=== PATIENT | male | born 1980 | race African-American/Black ===

== ENCOUNTER 2016-11-01 21:25 | Emergency (ER) | payer OTHER ==
[2016-11-01 21:56] VITALS: BP 154/94; PULSE 74; TEMP 98.5; BMI 33.2
== END 2016-11-01 23:08 | disposition left against medical advice (07) ==
LOC: JER 21:25 → JERFT 21:25 → JER 23:08
DX: Z53.21 Procedure and treatment not carried out due to patient leaving prior to being seen by health care provider (principal)
CPT/HCPCS: 99281-25

== ENCOUNTER 2021-09-25 18:59 | Emergency (ER) | payer OTHER ==
[2021-09-25 19:03] VITALS: BP 158/95; PULSE 96; RESP 18; TEMP 97.8; BMI 35.2
[2021-09-25] MEDS ORDERED: KETOROLAC TROMETHAMINE 30 MG/1 ML VIAL IM ONE (19:44)
[2021-09-25] MEDS ORDERED: KETOROLAC TROMETHAMINE 30 MG/1 ML VIAL ONE (19:56)
== END 2021-09-25 20:45 | disposition home or self-care (01) ==
LOC: JERFT 18:59
PROC: 3E0233Z Introduction of Anti-inflammatory into Muscle, Percutaneous Approach (ICD-10-PCS; principal; 2021-09-25)
DX: M25.561 Pain in right knee (principal); M25.562 Pain in left knee; V89.2XXA Person injured in unspecified motor-vehicle accident, traffic, initial encounter; Y92.9 Unspecified place or not applicable
CPT/HCPCS: 73562-TC-LT-FY; 73562-TC-RT-FY; 99284-25

== ENCOUNTER 2021-11-25 18:42 | Emergency (ER) | payer OTHER ==
[2021-11-25 19:01] VITALS: BP 161/90; PULSE 94; RESP 20; TEMP 98.4; BMI 33.9
[2021-11-25] MEDS ORDERED: BACITRACIN 15 GM TUBE TOPICAL OINTMENT ONE (19:54)
== END 2021-11-25 20:35 | disposition home or self-care (01) ==
LOC: JER 18:42 → JERFT 18:42
DX: T16.2XXA Foreign body in left ear, initial encounter (principal)
CPT/HCPCS: 99282-25

== ENCOUNTER 2021-11-29 20:16 | Emergency (ER) | payer OTHER ==
[2021-11-29 20:24] VITALS: BP 136/85; PULSE 100; RESP 18; TEMP 98.4; BMI 33.9
== END 2021-11-29 21:08 | disposition home or self-care (01) ==
LOC: JERFT 20:16
DX: S00.451A Superficial foreign body of right ear, initial encounter (principal)
CPT/HCPCS: 99283-25

== ENCOUNTER 2023-06-07 11:32 | Emergency (ER) | payer OTHER ==
[2023-06-07 11:42] VITALS: TEMP 98.6; BMI 35.2
[2023-06-07 12:18] LABS: BASO % 0.5 % (0-2.0); EOS % 1.6 % (0-4.5); HEMATOCRIT 46.2 % (35.4-49); HEMOGLOBIN 16.1 GM/dL (11.7-16.9); LYMPH % 24.4 % (8-40); MCH 29.5 pg (25.7-33.7); MCHC 34.8 g/dl (32.0-35.9); MEAN CELL VOLUME 84.9 fl (80-96); MEAN PLT VOLUME 8.9 fl (7.5-11.1); MONO % 6.6 % (3.8-10.2); NEUT % 66.9 % (42.8-82.8); PLATELET COUNT 238 10^3/uL (134-434); RBC 5.44 M/mm3 (4.00-5.60); WHITE BLOOD COUNT 11.1 K/mm3 (4.0-10.0)
[2023-06-07] MEDS ORDERED: FAMOTIDINE 20 MG TABLET ONE (12:20)
[2023-06-07] MEDS ORDERED: SUCRALFATE 1 GM TABLET (FP) ONE (12:21)
[2023-06-07] MEDS ORDERED: ACETAMINOPHEN INJECTION 100 ML IVPB ONE (12:21)
[2023-06-07] MEDS ORDERED: MAG HYDROX/AL HYDROX/SIMETH 30 ML UNIT-DOSE CUP ONE (12:21)
[2023-06-07] MEDS: ACETAMINOPHEN 1000 MG/100 ML BAG IVPB ONE (12:27)
[2023-06-07] MEDS: MAG HYDROX/AL HYDROX/SIMETH -MYLANTA- ORAL SUSPENSION PO ONE (12:27)
[2023-06-07] MEDS: SUCRALFATE 1 GM TABLET (FP) PO ONE (12:27)
[2023-06-07] MEDS: FAMOTIDINE 20 MG TABLET PO ONE (12:28)
[2023-06-07 12:58] LABS: ALBUMIN 3.8 g/dl (3.4-5.0); BLOOD UREA NITROGEN 6.9 mg/dL (7-18); CALCIUM 9.4 mg/dL (8.5-10.1)
[2023-06-07 13:01] LABS: TOT PROT 7.6 g/dl (6.4-8.2)
[2023-06-07 13:02] LABS: BILIRUBIN,TOTAL 0.7 mg/dL (0.2-1)
[2023-06-07 14:34] VITALS: BP 122/72; PULSE 76; RESP 19
== END 2023-06-07 14:34 | disposition home or self-care (01) ==
LOC: JER 11:32
PROC: 3E033NZ Introduction of Analgesics, Hypnotics, Sedatives into Peripheral Vein, Percutaneous Approach (ICD-10-PCS; principal; 2023-06-07)
DX: R10.13 Epigastric pain (principal); R10.12 Left upper quadrant pain; R07.9 Chest pain, unspecified; R19.7 Diarrhea, unspecified; R10.11 Right upper quadrant pain; R10.32 Left lower quadrant pain; Z20.822 Contact with and (suspected) exposure to COVID-19
CPT/HCPCS: 0241U-QW; 36415; 71046-TC-FY; 80053; 83690; 84484; 85025; 93005; 93010; 99285-25; J0131

== ENCOUNTER 2023-09-13 00:34 | Emergency (ER) | payer OTHER ==
[2023-09-13 00:42] VITALS: BP 144/105; PULSE 72; RESP 18; TEMP 98.3; BMI 35.2
== END 2023-09-13 01:39 | disposition home or self-care (01) ==
LOC: JER 00:34
DX: I10 Essential (primary) hypertension (principal); R51.9 Headache, unspecified
CPT/HCPCS: 99283-25

== ENCOUNTER 2023-12-02 17:00 | Emergency (ER) | payer OTHER ==
[2023-12-02 17:08] VITALS: BP 138/87; PULSE 100; RESP 18; TEMP 98.5; BMI 34.4
[2023-12-02 18:24] LABS: BASO % 0.7 % (0-2.0); EOS % 0.9 % (0-4.5); HEMATOCRIT 46.2 % (35.4-49); HEMOGLOBIN 15.9 GM/dL (11.7-16.9); LYMPH % 29.9 % (8-40); MCH 29.6 pg (25.7-33.7); MCHC 34.5 g/dl (32.0-35.9); MEAN CELL VOLUME 85.9 fl (80-96); MEAN PLT VOLUME 9.1 fl (7.5-11.1); MONO % 9.1 % (3.8-10.2); NEUT % 59.4 % (42.8-82.8); PLATELET COUNT 241 10^3/uL (134-434); RBC 5.37 M/mm3 (4.00-5.60); RDW 13.2 % (11.9-15.9); URINE APPEARANCE CLEAR; URINE BILIRUBIN NEGATIVE (NEGATIVE); URINE COLOR YELLOW; URINE GLUCOSE (UA) NEGATIVE (NEGATIVE); URINE KETONE TRACE (NEGATIVE); URINE LEUK ESTERASE NEGATIVE (NEGATIVE); URINE NITRITE NEGATIVE (NEGATIVE); URINE PROTEIN TRACE (NEGATIVE); URINE UROBILINOGEN 0.2 mg/dL (0.2-1.0); WHITE BLOOD COUNT 10.2 K/mm3 (4.0-10.0)
[2023-12-02] MEDS: LIDOCAINE VISCOUS 2% ORAL/TOP 15 ML UNIT-DOSE CUP MM ONE (18:37)
[2023-12-02] MEDS: MAG HYDROX/AL HYDROX/SIMETH 30 ML UNIT-DOSE CUP PO ONE (18:37)
[2023-12-02] MEDS: ACETAMINOPHEN 325 MG TABLET (FP) PO ONE (18:37)
[2023-12-02 18:43] LABS: POTASSIUM 3.6 mmol/L (3.5-5.1)
[2023-12-02 18:45] LABS: CALCIUM 9.4 mg/dL (8.5-10.1)
[2023-12-02 18:46] LABS: ALBUMIN 3.9 g/dl (3.4-5.0); BLOOD UREA NITROGEN 10.6 mg/dL (7-18)
[2023-12-02 18:49] LABS: CREATININE 1.2 mg/dL (0.55-1.3)
[2023-12-02 18:50] LABS: BILIRUBIN,TOTAL 0.9 mg/dL (0.2-1); TOT PROT 7.3 g/dl (6.4-8.2)
== END 2023-12-02 18:39 | disposition left against medical advice (07) ==
LOC: JER 17:00
DX: R10.32 Left lower quadrant pain (principal); R11.0 Nausea; Z20.822 Contact with and (suspected) exposure to COVID-19
CPT/HCPCS: 0241U-QW; 36415; 80053; 81003; 83690; 84484; 85025; 87086; 99284-25